=== PATIENT | male | born 2000 | race American Indian/Alaskan Native ===

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

== ENCOUNTER 2019-02-15 00:36 | Emergency (ER) | payer SELFPAY ==
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
[2019-02-15] MEDS ORDERED: Ibuprofen 800 MG Tab PO ONE (01:50)
== END 2019-02-15 01:06 | disposition home or self-care (01) ==
LOC: DL.ED 00:36
DX: S00.83XA Contusion of other part of head, initial encounter (principal); M79.651 Pain in right thigh; F17.210 Nicotine dependence, cigarettes, uncomplicated; Y04.2XXA Assault by strike against or bumped into by another person, initial encounter
CPT/HCPCS: 70450; 70486; 71045; 72125; 73552; 99283; 99284; A9270

== ENCOUNTER 2019-12-31 17:03 | Emergency (ER) | payer SELFPAY ==
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
[2019-12-31] MEDS ORDERED: Ibuprofen 600 MG Tab PO ONE (17:13)
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
[2019-12-31] MEDS ORDERED: cefTRIAXone 250 MG, Lidocaine 1% 0.9 ML IM ONE ×2 (18:40)
[2019-12-31] MEDS ORDERED: Azithromycin 250 MG Tab PO ONE (18:41)
== END 2019-12-31 19:17 | disposition home or self-care (01) ==
LOC: DL.ED 17:03
DX: N45.1 Epididymitis (principal); N43.1 Infected hydrocele; F17.210 Nicotine dependence, cigarettes, uncomplicated
CPT/HCPCS: 76870; 81001; 87086; 96372; 99284-25; A9270-GY; J0696; J2001